=== PATIENT | female | born 1965 | race Two or more races ===

== ENCOUNTER 2022-02-02 06:06 | Day surgery (SDC) | payer OTHER ==
[~2022-02-02] VITALS: Ht 157.5 cm; Wt 61.7 kg
[~2022-02-02 06:06] MED LIST: LEVOTHYROXINE25 MCG PO; SYMBICORT 16010.2 GM IH
== END 2022-02-02 16:30 | disposition home or self-care (01) ==
LOC: CIR.AMB 06:06
PROVIDERS: ATTEND Obstetrics & Gynecology
DX: D25.0 Submucous leiomyoma of uterus (principal); Z20.822 Contact with and (suspected) exposure to COVID-19; J45.909 Unspecified asthma, uncomplicated; Z86.16 Personal history of COVID-19; Z87.891 Personal history of nicotine dependence; E03.9 Hypothyroidism, unspecified